=== PATIENT | female | born 1955 | race Caucasian/White ===

== ENCOUNTER 2018-09-02 13:25 | Emergency (ER) | payer MEDICARE, MEDICAID ==
[2018-09-02] MEDS ORDERED: Sodium Chloride 0.9% 1,000 ML IV ONE (13:45)
[2018-09-02] MEDS ORDERED: Albuterol/Ipratropium Neb 3 ML AERS HHN ONE ×2 (13:49→14:00)
[2018-09-02 14:06] LABS: % BASOPHILS 0.3 % (0.0-2.0); % EOSINOPHILS 0.9 % (0.0-5.0); % LYMPHOCYTES 9.6 % (20.0-50.0); % MONOCYTES 2.7 % (2.0-10.0); % NEUTROPHILS 86.5 % (40.0-80.0); EOSINOPHILE ABSOLUTE 0.1 Th/cmm (0.1-0.4); HEMATOCRIT 47.6 % (41.0-60); HEMOGLOBIN 15.9 gm/dL (12-16); LYMPHOCYTE ABSOLUTE 0.9 Th/cmm (1.5-3.0); MEAN CELL VOLUME 96.6 fl (81-100); MEAN CORPUSCULAR HEMOGLOBIN 32.3 pg (27.0-31.0); MEAN CORPUSCULAR HGB CONC 33.4 pg (28.0-36.0); MEAN PLATELET VOLUME 7.2 fl; MONOCYTE ABSOLUTE 0.3 Th/cmm (0.3-1.0); NEUTROPHILE ABSOLUTE 8.5 Th/cmm (1.8-8.0); PLATELET COUNT 271 Th/cmm (150-400); RED BLOOD COUNT 4.93 Mil/cmm (3.80-5.10); RED CELL DISTRIBUTION WIDTH 14.3 % (11.5-20.0); WHITE BLOOD COUNT 9.8 Th/cmm (4.8-10.8)
[2018-09-02 14:17] LABS: INR 1.13 (0.5-1.4); PROTHROMBIN TIME (TEST) 11.6 SECONDS (9.5-11.5)
--- NOTE | 2018-09-02 14:18 | ED Physician Chart ---
ED Chief Complaint/HPI - Patient Information Date Seen:: 09/02/18 Time Seen:: 14:04 Chief Complaint:: chest congestion History of Present Illness:: THIS IS A 62 YO FEMALE WHO IS CONCERNED ABOUT NOT BREATHING WELL, COUGHING DAY AND NIGHT WITH WHEEZING AND SHORTNESS OF BREATH. SHE SMOKES AND HAS BEEN SMOKING FOR MANY YEARS. SHE DENIES ANY RECENT FEVER BUT ADMITS TO A SORE THROAT. SHE DENIES HEART DISEASE AND DIABETES BUT ADMITS TO HYPERTENSION. Allergies:: Allergies Allergy/AdvReac Type Severity Reaction Status Date / Time No Known Allergies Allergy Verified 09/02/18 13:36 Vitals:: Vital Signs - 8 hr 09/02/18 13:36 Temp 97.9 F HR 75 RR 18 BP 131/90 O2 Sat % 98 Historian:: Patient Review:: Nurse's Note Reviewed ED Review of Systems - Review of Systems General/Constitutional: No fever, No chills, No weight loss, No weakness, No diaphoresis, No edema, No loss of appetite Skin: No skin lesions, No rash, No bruising Head: No headache, No light-headedness Eyes: No loss of vision, No pain, No diplopia ENT: No earache, No nasal drainage, Sore throat, No tinnitus Neck: No neck pain, No swelling, No thyromegaly, No stiffness, No mass noted Cardio Vascular: No chest pain, No palpitations, No PND, No orthopnea, No edema Pulmonary: SOB, Cough, No sputum, Wheezing GI: No nausea, No vomiting, No diarrhea, No pain, No melena, No hematochezia, No constipation, No hematemesis G/U: No dysuria, No frequency, No hematuria Musculoskeletal: No bone or joint pain, No back pain, No muscle pain Endocrine: No polyuria, No polydipsia Psychiatric: No prior psych history, No depression, No anxiety, No suicidal ideation Hematopoietic: No bruising, No lymphadenopathy Allergic/Immuno: No urticaria, No angioedema Neurological: No syncope, No focal symptoms, No weakness, No paresthesia, No headache, No seizure, No dizziness, No confusion, No vertigo ED Past Medical History - Past Medical History Obtainable: Yes Past Medical History: HTN, Asthma/COPD Family History: None Social History: Smoker, No Alcohol, No Drug Use Surgical History: None Psychiatricy History: None Medication: Reviewed Family Medical History - Family Member Mother History Unknown: Yes ED Physical Exam - Physical Examination General/Constitutional: Awake, Well-developed, well-nourished, Alert, No distress, GCS 15, Non-toxic appearing, Ambulatory Other Gen/Cons comments:: LOOKS OLDER THAN STATED AGE Head: Atraumatic Eyes: Lids, conjuctiva normal, PERRL, EOMI Skin: Nl inspection, No rash, No skin lesions, No ecchymosis, Well hydrated, No lymphadenopathy ENMT: External ears, nose nl, Nasal exam nl, Lips, teeth, gums nl, Oropharynx nl (RED AND SWOLLEN POSTERIOR PHARYNX) Neck: Nontender, Full ROM w/o pain, No JVD, No nuchal rigidity, No bruit, No mass, No stridor Respiratory: Nl effort/Exclusion, Clear to Auscultation, No Wheeze/Rhonchi/ Rales (DECREASE BREATH SOUNDS AND WHEEZES BILATERALLY) Cardio Vascular: RRR, No murmur, gallop, rubs, NL S1 S2 GI: No tenderness/rebounding/guarding, No organomegaly, No hernia, Normal BS's, Nondistended, No mass/bruits, No McBurney tenderness : No CVA tenderness Extremities: No tenderness or effusion, Full ROM, normal strength in all extremities, No edema, Normal digits & nails Neuro/Psych: Alert/oriented, DTR's symmetric, Normal sensory exam, Normal motor strength, Judgement/insight normal, Mood normal, Normal gait, No focal deficits Misc: Normal back, No paraspinal tenderness ED Labs/Radiology/EKG Results - Lab Results Results: Abnormal Lab Results 09/02/18 09/02/18 09/02/18 13:50 13:50 13:50 WBC 9.8 RBC 4.93 Hgb 15.9 Hct 47.6 MCV 96.6 MCH 32.3 H MCHC Differential 33.4 RDW 14.3 Plt Count 271 MPV 7.2 Neutrophils % 86.5 H Lymphocytes % 9.6 L Monocytes % 2.7 Eosinophils % 0.9 Basophils % 0.3 PT 11.6 H INR 1.13 Specimen Source Sample Site pH pCO2 pO2 HCO3 Base Excess O2 Saturation Maciel Test Vent Rate Inspired O2 Tidal Volume PEEP Pressure (ins/psv/peep) Critical Value Sodium 140 Potassium 3.1 L Chloride 101 Carbon Dioxide 29.6 Anion Gap 12.5 BUN 9 Creatinine 0.6 Est GFR ( Amer) > 60.0 Est GFR (Non-Af Amer) > 60.0 BUN/Creatinine Ratio 15.0 Glucose 115 H Calcium 10.2 Total Bilirubin 0.6 AST 25 ALT 14 Alkaline Phosphatase 74 Troponin I Total Protein 7.4 Albumin 4.6 Globulin 2.8 Albumin/Globulin Ratio 1.6 TSH 09/02/18 09/02/18 09/02/18 13:50 13:50 13:50 WBC RBC Hgb Hct MCV MCH MCHC Differential RDW Plt Count MPV Neutrophils % Lymphocytes % Monocytes % Eosinophils % Basophils % PT INR Specimen Source Arterial Sample Site RB pH 7.46 H pCO2 45.0 pO2 69.0 L HCO3 30.5 H Base Excess 7.2 H O2 Saturation 95.0 Maciel Test NA Vent Rate NA Inspired O2 21 Tidal Volume NA PEEP NA Pressure (ins/psv/peep) NA Critical Value SH Sodium Potassium Chloride Carbon Dioxide Anion Gap BUN Creatinine Est GFR ( Amer) Est GFR (Non-Af Amer) BUN/Creatinine Ratio Glucose Calcium Total Bilirubin AST ALT Alkaline Phosphatase Troponin I 0.01 Total Protein Albumin Globulin Albumin/Globulin Ratio TSH 0.64 - Radiology Results Results: ct scan of the chest = finding consistent with copd ED Assessment - Assessment General Assessment: acute bronchitis ED Septic Shock - . Is Septic Shock (SBP<90, OR Lactate>4 mmol\L) present?: No - <6hrs of presentation: Vital Signs: Vital Signs - 8 hr 09/02/18 13:36 Temp 97.9 F HR 75 RR 18 BP 131/90 O2 Sat % 98 ED Reassessment (Disposition) - Reassessment Reassessment Condition:: Improved - Diagnosis Diagnosis:: acute bronchitis acute pharyngitis copd - Aftercare/Follow up Instructions Aftercare/Follow-Up Instructions:: Counseled pt regarding lab results/diagnosis & need follow up, Refer to Discharge Instructions, Counseled pt & family regarding lab results/diagnosis & need follow up Medication Prescribed:: z-tanner, prednisoine - Patient Disposition Discharge/Transfer:: Home Condition at Disposition:: Improved
[2018-09-02 14:23] LABS: ALB/GLOB RATIO 1.6 (1.0-1.8); ALBUMIN 4.6 gm/dL (3.7-5.3); ALKALINE PHOSPHATASE 74 U/L (34-104); ANION GAP 12.5 (7.0-16.0); BILIRUBIN,TOTAL 0.6 mg/dL (0.3-1.0); BUN - UREA NITROGEN 9 mg/dL (7-25); CALCIUM SERUM 10.2 mg/dL (8.6-10.3); CARBON DIOXIDE 29.6 mEq/L (21.0-31.0); CHLORIDE 101 mEq/L (98-107); CREATININE - SERUM 0.6 mg/dL (0.6-1.2); GFR AFRICAN-AMERICAN > 60.0 ml/min (>90); GFR NON AFRICAN-AMERICAN > 60.0 ml/min; GLUCOSE 115 mg/dL (70-105); POTASSIUM SERUM 3.1 mEq/L (3.5-5.1); SGOT 25 U/L (13-39); SGPT/ALT 14 U/L (7-52); SODIUM SERUM 140 mEq/L (136-145); TOTAL PROTEIN,SERUM 7.4 gm/dL (6.0-8.3)
[2018-09-02 14:38] LABS: pH 7.46 (7.35-7.45)
[2018-09-02] MEDS ORDERED: Potassium Chloride Elixir 20 mEq /15 mL UDC PO ONE (14:39)
[2018-09-02] MEDS ORDERED: Potassium Chloride Elixir 20 mEq /15 mL UDC ONE (15:15)
--- NOTE | 2018-09-03 10:43 | Diagnostic Imaging Report ---
Exam: CT examination of chest. HISTORY: Chest congestion. Total DLP equals 205 CTDI equals 5.2 Findings: Multiple contiguous thin section of the chest were obtained from thoracic outlet to the upper abdomen without the administration of contrast material. The study demonstrates a reported scarring in the apices bilaterally. This mostly correlated to old trauma inflammatory changes. Adenopathy cannot be excluded due to lack of contrast material. There is evidence for mild peribronchial infiltrate in the right midlung anteriorly. Mediastinal structures midline the heart is not enlarged bony thorax remarkable for degenerative changes. The visualized upper abdomen is intact. IMPRESSION: Bilateral apical scarring most likely post inflammatory changes Mild atelectasis versus early infiltrate in the right midlung anteriorly.
== END 2018-09-02 16:06 | disposition home or self-care (01) ==
LOC: ER 13:25
DX: J44.9 Chronic obstructive pulmonary disease, unspecified (principal); J20.9 Acute bronchitis, unspecified; J02.9 Acute pharyngitis, unspecified; I10 Essential (primary) hypertension; F17.200 Nicotine dependence, unspecified, uncomplicated
CPT/HCPCS: 99284; 96374; 96375; 82803; 36600; 94640; 71250; 84484; 36415; 84443; 85025; 85610; 80053; 87040 ×2; J0696; J2930; J7030; Z7502